=== PATIENT | female | born 1950 | race Two or more races ===

== ENCOUNTER 2016-08-25 08:30 | Outpatient (RCR) | payer OTHER | END 2016-09-01 | disposition home or self-care (01) | LOC: PTY 08:30 | DX: M41.35 Thoracogenic scoliosis, thoracolumbar region (principal) | CPT/HCPCS: 97110; 97140; 97161; G0283 ==

== ENCOUNTER 2016-09-08 07:54 | Outpatient (RCR) | payer OTHER | END 2016-10-02 | disposition home or self-care (01) | LOC: PTY 07:54 | DX: M41.35 Thoracogenic scoliosis, thoracolumbar region (principal); M54.16 Radiculopathy, lumbar region; M81.0 Age-related osteoporosis without current pathological fracture | CPT/HCPCS: 97110; 97140; G0283 ==